=== PATIENT | female | born 1965 | race Two or more races ===

== ENCOUNTER → 2019-04-16 | Outpatient (CLI) | payer OTHER | END | disposition home or self-care (01) | LOC: CFH 08:19 | PROVIDERS: ATTEND Physician Assistant | DX: J01.30 Acute sphenoidal sinusitis, unspecified (principal); W19.XXXA Unspecified fall, initial encounter; Y93.89 Activity, other specified; Y92.89 Other specified places as the place of occurrence of the external cause; Y99.8 Other external cause status | CPT/HCPCS: 70450 ==

== ENCOUNTER → 2019-11-22 | Outpatient (CLI) | payer OTHER ==
[~2019-11-22] MED LIST: REGADENOSON 0.4 MG/5 ML SYRINGE ONE
== END | disposition home or self-care (01) ==
LOC: CFH 07:23
PROVIDERS: ATTEND Internal Medicine
DX: E78.5 Hyperlipidemia, unspecified (principal)
CPT/HCPCS: 78452; 93017; A9502; J2785